=== PATIENT | female | born 1930 | race Caucasian/White ===

== ENCOUNTER 2018-11-10 09:31 | Inpatient (IN) ==
--- NOTE | 2018-11-10 09:57 | Emergency Department Note ---
ED Disposition Clinical Impression: Congestive heart failure, Acute exacerbation of chronic obstructive airways disease Disposition: Admitted As Inpatient Condition on Discharge: Good - Critical Care Critical Care Time: No Attestation: On , the high probability of a clinically significant, sudden or life threatening deterioration of the following system(s) required my full and direct attention, intervention and personal management. The time I documented below is in addition to time spent performing reported procedures but includes the following listed in this critical care notation. Medical Decision Making - Medical Records Medical records reviewed: Yes: I reviewed the patient's medical records. - Ian Inquiry Pt receiving controlled substance: No Ian was queried for this patient: No Vital Signs: 11/10/18 09:37 11/10/18 09:44 11/10/18 09:50 Temperature 97.7 F Temperature Source Oral Pulse Rate 62 Pulse Rate [Left Radial] 65 Respiratory Rate 20 Blood Pressure [Right Arm] 162/80 H Blood Pressure Mean [Right Arm] 107 Blood Pressure Source [Right Arm] Automatic Cuff Blood Pressure Position [Right Arm] Sitting 02 Sat by Pulse Oximetry 80 L 98 Oxygen Delivery Method Nasal Cannula Nasal Cannula Oxygen Flow Rate (LPM) 2 4 11/10/18 10:05 11/10/18 10:34 11/10/18 11:05 Temperature Temperature Source Pulse Rate 62 60 Pulse Rate [Left Radial] 60 Respiratory Rate 16 Blood Pressure [Right Arm] 172/78 H Blood Pressure Mean [Right Arm] 109 Blood Pressure Source [Right Arm] Automatic Cuff Blood Pressure Position [Right Arm] Sitting 02 Sat by Pulse Oximetry 98 Oxygen Delivery Method Nasal Cannula Oxygen Flow Rate (LPM) 4 - Lab Data Lab results reviewed: Yes: I reviewed the patient's lab results. Lab Results 11/10/18 10:03: WBC 4.2 L, RBC 3.54 L, Hgb 9.8 L, Hct 32.7 L, MCV 92.5, MCH 27.8, MCHC 30.1 L, RDW 15.3, Plt Count 221, MPV 7.7, Neut % (Auto) 87.1 H, Lymph % (Auto) 9.5 L, [place] % (Auto) 2.7, Eos % (Auto) 0.5, Baso % (Auto) 0.1, Neut # (Auto) 3.7, Lymph # (Auto) 0.4 L, [place] # (Auto) 0.1, Eos # (Auto) 0.0, Baso # (Auto) 0.0, Total Counted 100, Neutrophils % (Manual) 91 H, Lymphocytes % (Manual) 8 L, Monocytes % (Manual) 1 L, Platelet Estimate Normal, Hypochromasia 2+ 11/10/18 10:03: Sodium 136, Potassium 5.2 H, Chloride 96 L, Carbon Dioxide 35 H, Anion Gap 10.2, BUN 44 H, Creatinine 1.78 H, Estimated Creat Clear 21, Estimated GFR 27 L, Est GFR ( Amer) 32 L, Glucose 312 H, Calcium 9.0, Total Bilirubin 0.8, AST 22, ALT 18, Alkaline Phosphatase 124 H, Troponin I < 0.02, Total Protein 7.1, Albumin 3.4, Globulin 3.7 H, Albumin/Globulin Ratio 0.9 L 11/10/18 10:03: Lactate 2.5 H 11/10/18 11:05: Urine Color Yellow, Urine Appearance Clear, Urine pH 5.5, Ur Specific [place] 1.015, Urine Protein Negative, Urine Glucose (UA) Negative, Urine Ketones Negative, Urine Blood 1+, Urine Nitrate Negative, Urine Bilirubin Negative, Urine Urobilinogen 0.2, Ur Leukocyte Esterase Trace, Urine RBC 3-5, Urine WBC 3-5, Ur Squamous Epith Cells Occasional, Urine Bacteria 3+, Hyaline Casts Occasional Result diagrams: 11/10/18 10:03 11/10/18 10:03 Orders (Tests/Meds): ED MEDICATIONS Generic Name Dose Route Start Last Admin Trade Name Freq PRN Reason Stop Dose Admin Budesonide 0.5 mg 11/10/18 18:00 11/10/18 10:05 Pulmicort 0.5mg/2ml Neb IH 12/10/18 17:59 0.5 mg BIDRT NINA Administration Sodium Chloride 1,000 mls @ 25 mls/hr 11/10/18 10:00 Sod Chlor 0.9% 1000ml Bag IV 12/10/18 09:59 .Q25H NINA Levofloxacin/Dextrose 750 mg in 150 mls @ 100 mls/hr 11/10/18 10:00 11/10/18 10:10 Levofloxacin 750mg/150ml Premix IV 11/24/18 09:59 100 mls/hr Q24H NINA Administration Protocol Sodium Chloride 3 ml 11/10/18 09:47 Sodium Chloride 3% 15ml [facility] 12/10/18 09:46 ONCE PRN INDUCE SPUTUM COLLECTION Discontinued Medications Generic Name Dose Route Start Last Admin Trade Name Reuben PRN Reason Stop Dose Admin Albuterol/Ipratropium 6 ml 11/10/18 09:47 11/10/18 09:50 Duoneb 3ml [facility] 11/10/18 09:48 6 ml ONCE ONE Administration ORDERS Category Date Time Status Urinalysis-Acute [Urinalysis and Microscopic] Stat Lab 11/10/18 11:05 Ordered Blood Culture Stat Micro 11/10/18 09:56 Ordered Sputum Culture & Gram Stain Stat Micro 11/10/18 09:56 Ordered Urine Culture Stat Micro 11/10/18 11:05 Received - ECG Data Tracing #1 I reviewed this ECG and interpreted as documented below: Pacemaker rhythm at rate of 6 1 over 81 no acute pathology no previous CT ECG initial impression date: 11/10/18 ECG initial impression time: 10:40 Medical Decision Narrative: Differential diagnosis includes CHF, pneumonia, exacerbation of COPD, Patient improved with DuoNeb and steroids IV Levaquin started CAT scan revealed bilateral vision possible pneumonia laboratory studies essentially unremarkable results discussed with family and patient. Dr. Rahman's nurse practitioner consult patient will be admitted to hospital observation status General Adult HPI - General Chief complaint: Shortness of Breath/Dyspnea Stated complaint: sob Time Seen by Provider: 11/10/18 09:40 Mode of Arrival: EMS Limitations: No Limitations Description of Symptoms (Recalled from ER Triage Doc. by RN): to ed per squad [place] reports pt with sob. had cxr yesterday show obdulia inflitrates pt given "steroids" last night. pt admits alert follows commands. pt wears o2 24/7. pt denies any other c/o cpta duoneb. - History of Present Illness HPI narrative: Patient arrived from detention with a history of bilateral lower lobe infiltrates last couple days today more short of breath she was given IV steroids and Lasix at the detention and received DuoNeb via ambulance. Patient has a history of anemia is usually ambulatory. Patient has a history of A. fib coronary artery disease and a pacemaker is on Eliquis and aspirin. No evidence that antibiotics have been started - Related Data Home Medications Medication Instructions Recorded Confirmed Apixaban [Eliquis] 2.5 mg PO BID 11/10/18 11/10/18 Buspirone HCl 7.5 mg PO BID 11/10/18 11/10/18 Cetirizine HCl 10 mg PO DAILY 11/10/18 11/10/18 Escitalopram Oxalate [Lexapro] 5 mg PO DAILY 11/10/18 11/10/18 Ipratropium/Albuterol Sulfate 3 ml INHALATION BID 11/10/18 11/10/18 [Iprat-Albut 0.5-3(2.5) mg/3 ml] Lactulose [Lactulose 10gm/15ml 30 gm PO DAILY 11/10/18 11/10/18 Oral Soln] Lisinopril [Lisinopril 10mg Tab] 10 mg PO DAILY 11/10/18 11/10/18 Metoprolol Tartrate [Lopressor 37.5 mg PO BID 11/10/18 11/10/18 25mg tablet] Mirtazapine [Remeron 15mg tablet] 15 mg PO DAILY 11/10/18 11/10/18 Mirtazapine [Remeron] 30 mg PO DAILY 11/10/18 11/10/18 Potassium Chloride [Klor-Con 10mEq 20 meq PO BID 11/10/18 11/10/18 tab] raNITIdine HCl [Ranitidine HCl] 150 mg PO DAILY 11/10/18 11/10/18 Allergies Allergy/AdvReac Type Severity Reaction Status Date / Time iodine Allergy Verified 07/22/18 11:26 Penicillins Allergy Verified 07/22/18 11:26 Sulfa (Sulfonamide Allergy Verified 07/22/18 11:26 Antibiotics) [facility] History - Hepatitis A Screen Drug use history?: No High risk sexual behaviors?: No History of sexually transmitted infection?: No Currently employed?: No Childcare worker?: No Do you have indoor plumbing?: Yes Do you have electricity?: Yes Attestation statement:: This patient has been screened for Hepatitis A risk factors. I have reviewed the patient's past medical history: Yes Medical History: Reports:: Atherosclerotic Heart Disease, Atrial Fibrillation, Congestive Heart Failure, Chronic Obstructive Pulmonary Disease (COPD), Internal Pacemaker Other Medical History: Reports: Anemia - Social History Alcohol Intake: never Occupational Status: other - Psychiatric History Expresses thoughts of harming self/others: None Suicide Plan Description: No Plan ROS Obtained: Yes All systems reviewed & no additional complaints - Constitutional Constitutional: Reports as per HPI, Reports weakness - Respiratory Respiratory: Yes as per HPI, Yes dyspnea, Yes wheezing Physical Exam - General General appearance: alert, in no apparent distress Comment: Mildly dyspneic mild audible wheezes very pale alert and oriented - Head Head exam: atraumatic, normocephalic, normal inspection - Eye Eye exam: Present: normal appearance, PERRL, EOMI - ENT ENT exam: Present: normal exam, normal oropharynx, mucous membranes moist, TM's normal bilaterally, normal external ear exam - Neck Neck exam: Present: normal inspection, full ROM, trachea midline. Absent: meningismus, lymphadenopathy - Chest Chest inspection: Present: normal inspection, symmetric chest wall rise. Absent: tenderness - Respiratory Respiratory exam: Present: respiratory distress (Mildly tachypneic some audible wheezes but able to answer questions with short sentences bilateral lower base dullness with egophony left-sided rales crackles), wheezes. Absent: normal lung sounds bilaterally - Cardiovascular Cardiovascular exam: Present: irregular rhythm, Pacemaker not pacing now. Absent: JVD - Abdominal Exam Abdominal exam: Present: soft, normal bowel sounds. Absent: distention, tenderness, guarding - Extremities Exam Extremities exam: Present: normal inspection, full ROM, normal capillary refill. Absent: calf tenderness - Back Exam Back exam: Present: normal inspection. Absent: tenderness - Neurological Exam Neurological exam: Present: alert, oriented X3 - Psychiatric Psychiatric exam: Present: normal affect, normal mood - Skin Skin exam: Present: warm, dry, intact, normal color - Lymphatic Lymphatic Findings: no adenopathy
[2018-11-10 10:16] LABS: Basophils % 0.1 % (0.1-2.0); Eosinophils % 0.5 % (0.1-12.0); Hematocrit 32.7 % (37.0-47.0); Hemoglobin 9.8 g/dL (12.2-16.2); Lymphocytes # 0.4 K/mm3 (0.7-4.5); Lymphocytes % 9.5 % (10-50); Mean Corpuscular HGB Conc 30.1 g/dL (31.8-35.4); Mean Corpuscular Hemoglobin 27.8 pg (27.0-31.2); Mean Corpuscular Volume 92.5 fl (81-99); Mean Platelet Volume 7.7 fl (7.4-10.4); Monocytes # 0.1 K/mm3 (0.1-1.0); Monocytes % 2.7 % (1.7-9.3); Neutrophils # 3.7 K/mm3 (1.8-7.8); Neutrophils % 87.1 % (37.0-80.0); Platelet Count 221 K/mm3 (142-424); Red Blood Count 3.54 M/mm3 (4.20-5.40); Red Cell Distribution Width 15.3 % (11.5-17.5); White Blood Count 4.2 K/mm3 (4.8-10.8)
[2018-11-10 10:40] LABS: Alanine Aminotransferase 18 U/L (12-78); Albumin Level 3.4 gm/dL (3.4-5.0); Albumin/Globulin Ratio 0.9 (1.1-1.8); Alkaline Phosphatase 124 U/L (46-116); Anion Gap 10.2 mEq/L (5-15); Aspartate Amino Transferase 22 U/L (15-37); Bilirubin,Total 0.8 mg/dL (0.2-1.0); Blood Urea Nitrogen 44 mg/dL (7-18); Carbon Dioxide 35 mmol/L (21.0-32.0); Chloride 96 mmol/L (98-107); Globulin 3.7 gm/dl (1.3-3.2); Glucose 312 mg/dL (74-106); Potassium 5.2 mmoL/L (3.5-5.1); Sodium 136 mmol/L (136-145); Total Protein,Serum 7.1 gm/dL (6.4-8.2)
[2018-11-10 10:58] LABS: Hypochromasia 2+; Lymphocytes % 8 % (10-50); Monocytes % 1 % (2-9); Neutrophils % 91 % (42-76); Total Cells Counted 100
[2018-11-10 11:14] LABS: Microscopic, Urine URINE MICROSCOPIC (MICROSCOPIC)
[2018-11-10 11:15] LABS: Appearance,Urine CLEAR (Clear); Bilirubin,Urine Negative (Negative); Blood, Urine 1+ (Negative); Color,Urine YELLOW (Yellow); Glucose,Urine (UA) Negative (Negative); Ketones,Urine Negative (Negative); Leukocyte Esterase,Urine TRACE (Negative); PH,Urine 5.5 (5.0-8.5); Protein,Urine Negative (Negative); Specific Gravity, Urine 1.015 (1.005-1.030); Urobilinogen,Urine 0.2 EU/dl (0.2)
[2018-11-10 11:28] LABS: Bacteria,Urine 3+ /lpf; Hyaline Casts,Urine Occasional #/lpf (0); Squamous Epithelial Cell,Urine Occasional #/hpf (0-5)
[2018-11-10 14:46] LABS: Anion Gap 10.2 mEq/L (5-15); Calcium 8.9 mg/dL (8.5-10.1); Potassium 5.2 mmoL/L (3.5-5.1)
--- NOTE | 2018-11-10 15:08 | Pharmacy Consult Notes ---
[facility] Pharmacy VTE Monitoring - Patient Demographics Admission date: 11/10/18 Report Date: 11/10/18 Time: 15:08 Allergies/Adverse Reactions: Patient Allergies iodine Allergy (Verified 07/22/18 11:26) Penicillins Allergy (Verified 07/22/18 11:26) Sulfa (Sulfonamide Antibiotics) Allergy (Verified 07/22/18 11:26) Height: 1.6 m Weight: 59.676 kg Patient Problems: Current Active Problems Congestive heart failure (Acute) Acute exacerbation of chronic obstructive airways disease (Acute) - VTE Risk Labs: VTE Related Lab Results Hgb 9.8 g/dL (12.2-16.2) L 11/10/18 10:03 Hct 32.7 % (37.0-47.0) L 11/10/18 10:03 Plt Count 221 K/mm3 (142-424) 11/10/18 10:03 BUN 46 mg/dL (7-18) H 11/10/18 13:54 Creatinine 1.77 mg/dL (0.55-1.02) H 11/10/18 13:54 Estimated Creat Clear 20 mL/min (50-200) 11/10/18 13:54 VTE Score: 4 VTE Risk Level: Low Risk Clinical Trial Participant: No - Prophylaxis VTE Prophylaxis Ordered?: Yes Types of VTE Prophylaxis: TEDS Knee High Location of Applied Device: Bilateral Lower Extremeties
--- NOTE | 2018-11-10 16:10 | History & Physical Report ---
*Admission Date: 11/10/18 *Chief complaint: shortness of breath *History of present illness: 88 year old female with a h/o diabetes, A.fib, CAD, PPM and CHF who resides at [facility] was transported to [facility] ED for evaluation of lethargic and shortness of breath. Patient reports a 2 weeks h/o increased LE edema and shortness of breath. She has required oxygen over the last 2 weeks to maintain her saturations which is a new for her. She has had increased oral Lasix with little improvement of symptoms. [facility] staff report she was "virtually unresponsive" this morning with saturations "in the low 80's." In the ED, labs revealed mild anemia with H/H 9.8/32.7 which is about her baseline. Creatinine 1.78 which is up from her baseline of 1.2. Potassium mildly elevated at 5.2 which is an improvement from facility labs 2 weeks ago when potassium supplement was discontinued. CXR showed bilateral basilar infiltrates which prompted a CT scan of the chest. CT showed moderate bilateral pleural effusions/infiltrates, nodular opacities which could be inflammatory/infectious although neoplasm is not excluded and faint ground glass appearance in upper lobes possibly from pulmonary edema. UA suspicious for UTI, culture pending. Patient was admitted for IV antibiotics and further evaluation. [facility] History I have reviewed the patient's past medical history: Yes Medical History: Reports:: Atherosclerotic Heart Disease, Atrial Fibrillation, Congestive Heart Failure, Chronic Obstructive Pulmonary Disease (COPD), Diabetes Mellitus Type 2, Internal Pacemaker Denies:: Cancer, Diabetes Mellitus Type 1, MRSA Have you ever received a pneumonia vaccine?: Yes Have you received a flu vaccine this season?: Yes Other Medical History: Reports: Anemia Other Surgeries: Yes: Cholecystectomy, Pacemaker Amputation: No Fractures: No - *Social History Educational Level: Completed College Smoking Status: Never smoker Alcohol Intake: never Occupational Status: retired, other Housing: long-term Travel in the last 8 weeks: None - Psychiatric History Expresses thoughts of harming self/others: None Suicide Plan Description: No Plan *Family Hx:: Cancer, Diabetes, Heart Attack, Hyperlipidemia, Hypertension, Stroke Review of Systems - Review of Systems Review of systems:: pertinent systems reviewed and negative unless documented below - Constitutional Reports weakness - *Cardiovascular Reports generalized swelling - *Respiratory Reports cough - *Neurologic Reports weakness Meds Home Medications Medication Instructions Recorded Confirmed Type Apixaban [Eliquis] 2.5 mg PO BID 11/10/18 11/10/18 History Aspirin [Aspirin 81mg EC Tab] 81 mg PO DAILY 11/10/18 11/10/18 History Atorvastatin Calcium [Atorvastatin 20 mg PO HS 11/10/18 11/10/18 History 20mg Tab] Azelastine/Fluticasone [Dymista 1 spr IN BID 11/10/18 11/10/18 History Nasal [place]] Buspirone HCl 7.5 mg PO BID 11/10/18 11/10/18 History Cetirizine HCl 10 mg PO DAILY 11/10/18 11/10/18 History Escitalopram Oxalate [Lexapro] 5 mg PO DAILY 11/10/18 11/10/18 History Furosemide [Furosemide 20mg Tab] 20 mg PO DAILY 11/10/18 11/10/18 History Ipratropium/Albuterol Sulfate 3 ml INHALATION BID 11/10/18 11/10/18 History [Iprat-Albut 0.5-3(2.5) mg/3 ml] Lactulose [Lactulose 10gm/15ml 30 gm PO DAILY 11/10/18 11/10/18 History Oral Soln] Lisinopril [Lisinopril 10mg Tab] 10 mg PO DAILY 11/10/18 11/10/18 History Metoprolol Tartrate [Lopressor 37.5 mg PO BID 11/10/18 11/10/18 History 25mg tablet] Mirtazapine [Remeron 15mg tablet] 15 mg PO DAILY 11/10/18 11/10/18 History raNITIdine HCl [Ranitidine HCl] 150 mg PO DAILY 11/10/18 11/10/18 History Allergies Allergy/AdvReac Type Severity Reaction Status Date / Time iodine Allergy Verified 07/22/18 11:26 Penicillins Allergy Verified 07/22/18 11:26 Sulfa (Sulfonamide Allergy Verified 07/22/18 11:26 Antibiotics) Exam Vital signs and Labs for Last 24 Hours: Temp Pulse Resp BP Pulse Ox 98.2 F 60 18 142/55 H 98 11/10/18 15:39 11/10/18 15:39 11/10/18 15:39 11/10/18 15:39 11/10/18 15:39 Laboratory Results - last 24 hr 11/10/18 10:03: WBC 4.2 L, RBC 3.54 L, Hgb 9.8 L, Hct 32.7 L, MCV 92.5, MCH 27.8, MCHC 30.1 L, RDW 15.3, Plt Count 221, MPV 7.7, Neut % (Auto) 87.1 H, Lymph % (Auto) 9.5 L, [place] % (Auto) 2.7, Eos % (Auto) 0.5, Baso % (Auto) 0.1, Neut # (Auto) 3.7, Lymph # (Auto) 0.4 L, [place] # (Auto) 0.1, Eos # (Auto) 0.0, Baso # (Auto) 0.0, Total Counted 100, Neutrophils % (Manual) 91 H, Lymphocytes % ( Manual) 8 L, Monocytes % (Manual) 1 L, Platelet Estimate Normal, Hypochromasia 2+ 11/10/18 10:03: Sodium 136, Potassium 5.2 H, Chloride 96 L, Carbon Dioxide 35 H, Anion Gap 10.2, BUN 44 H, Creatinine 1.78 H, Estimated Creat Clear 21, Estimated GFR 27 L, Est GFR ( Amer) 32 L, Glucose 312 H, Calcium 9.0, Total Bilirubin 0.8, AST 22, ALT 18, Alkaline Phosphatase 124 H, Troponin I < 0.02, Total Protein 7.1, Albumin 3.4, Globulin 3.7 H, Albumin/Globulin Ratio 0.9 L 11/10/18 10:03: Lactate 2.5 H 11/10/18 11:05: Urine Color Yellow, Urine Appearance Clear, Urine pH 5.5, Ur Specific [place] 1.015, Urine Protein Negative, Urine Glucose (UA) Negative, Urine Ketones Negative, Urine Blood 1+, Urine Nitrate Negative, Urine Bilirubin Negative, Urine Urobilinogen 0.2, Ur Leukocyte Esterase Trace, Urine RBC 3-5, Urine WBC 3-5, Ur Squamous Epith Cells Occasional, Urine Bacteria 3+, Hyaline Casts Occasional 11/10/18 13:54: Sodium 137, Potassium 5.2 H, Chloride 98, Carbon Dioxide 34 H, Anion Gap 10.2, BUN 46 H, Creatinine 1.77 H, Estimated Creat Clear 20, Estimated GFR 27 L, Est GFR ( Amer) 33 L, Glucose 236 H D, Calcium 8.9 11/10/18 14:23: Lactate 2.2 H I & O for Last 24 hours: Intake & Output 11/08/18 11/09/18 11/10/18 11/11/18 11:59 11:59 11:59 11:59 Intake Total 120 / 120 Output Total 200 / 200 Balance -80 / -80 Weight 140 lb 131 lb 9 oz Narrative: Alert and oriented x 3, some confusion. Rate and rhythm regular. PPM noted left chest. 2+ BLE edema extends up to mid thighs. Lung sounds with fine crackles bilaterally. Abdomen, mild distended, soft, nontender. Skin, is warm, pale. ENT exam unremarkable. Assessment and Plan (1) Bilateral pneumonia Current visit: Yes Status: Acute Category: Medical Code(s): J18.9 - Pneumonia, unspecified organism (2) UTI (urinary tract infection) Current visit: Yes Status: Acute Category: Medical Code(s): N39.0 - Urinary tract infection, site not specified (3) Renal insufficiency Current visit: Yes Status: Acute Category: Medical Code(s): N28.9 - Disorder of kidney and ureter, unspecified (4) Hyperkalemia Current visit: Yes Status: Acute Category: Medical Code(s): E87.5 - Hyperkalemia (5) Type 2 diabetes mellitus Current visit: Yes Status: Chronic Qualifiers: Diabetes mellitus salvage determiner insulin use: without salvage determiner use Diabetes mellitus complication status: without complication Qualified Code(s): E11.9 - Type 2 diabetes mellitus without complications Category: Medical Code(s): E11.9 - Type 2 diabetes mellitus without complications (6) Congestive heart failure Current visit: Yes Status: Acute Category: Medical Code(s): I50.9 - Heart failure, unspecified - Assessment and plan all Dx Assessment and Plan for all problems:: Admit on Levaquin for pneumonia and UTI coverage. Urine and blood cultures are pending. Obtain sputum if patient is able to produce. I believe her dyspnea is related to her CHF with fluid overload. Will give albumin and IVF's followed by Lasix for starling effect in attempt to diuresis. Obtain Echo. Will request records from [place] cardiology Dr. Villalpando for review. Recheck labs in the am. FSBS with sliding scale coverage. Spoke with patient and family who confirmed DNR status.
[2018-11-11 06:14] LABS: Basophils % 0.1 % (0.1-2.0); Eosinophils % 0.5 % (0.1-12.0); Lymphocytes # 0.8 K/mm3 (0.7-4.5); Lymphocytes % 10.8 % (10-50); Monocytes # 0.8 K/mm3 (0.1-1.0); Neutrophils # 5.5 K/mm3 (1.8-7.8); Neutrophils % 77.5 % (37.0-80.0)
[2018-11-11 06:20] LABS: Hematocrit 27.5 % (37.0-47.0); Mean Corpuscular HGB Conc 30.9 g/dL (31.8-35.4); Mean Corpuscular Hemoglobin 28.2 pg (27.0-31.2); Mean Corpuscular Volume 91.5 fl (81-99); Mean Platelet Volume 7.7 fl (7.4-10.4); Platelet Count 193 K/mm3 (142-424); Red Cell Distribution Width 15.4 % (11.5-17.5); White Blood Count 6.9 K/mm3 (4.8-10.8)
[2018-11-11 06:22] LABS: Hemoglobin 8.5 g/dL (12.2-16.2)
[2018-11-11 06:30] LABS: Calcium 8.4 mg/dL (8.5-10.1)
--- NOTE | 2018-11-11 07:41 | Progress Note ---
Internal Medicine - PN: Subj *Date: 11/11/18 *Time: 07:39 Interval history: Patient feels a little better than yesterday. There is a 9 pound weight loss documented but this does not appear to be accurate as the ER weight apparently was not an actual documented scale based weight. She has diuresed several times but again I am not sure of the accuracy of the numbers in the chart she possibly has diuresed about a liter. Her daughter reports that she becomes short of air when she gets up and moves around and this causes "some panicky symptoms." Exam Vital signs and Labs for Last 24 Hours: Temp Pulse Resp BP Pulse Ox 98.0 F 60 20 144/49 H 100 11/11/18 04:00 11/11/18 06:40 11/11/18 04:00 11/11/18 04:00 11/11/18 06:40 Laboratory Results - last 24 hr 11/10/18 10:03: WBC 4.2 L, RBC 3.54 L, Hgb 9.8 L, Hct 32.7 L, MCV 92.5, MCH 27.8, MCHC 30.1 L, RDW 15.3, Plt Count 221, MPV 7.7, Neut % (Auto) 87.1 H, Lymph % (Auto) 9.5 L, [place] % (Auto) 2.7, Eos % (Auto) 0.5, Baso % (Auto) 0.1, Neut # (Auto) 3.7, Lymph # (Auto) 0.4 L, [place] # (Auto) 0.1, Eos # (Auto) 0.0, Baso # (Auto) 0.0, Total Counted 100, Neutrophils % (Manual) 91 H, Lymphocytes % (Manual) 8 L, Monocytes % (Manual) 1 L, Platelet Estimate Normal, Hypochromasia 2+ 11/10/18 10:03: Sodium 136, Potassium 5.2 H, Chloride 96 L, Carbon Dioxide 35 H, Anion Gap 10.2, BUN 44 H, Creatinine 1.78 H, Estimated Creat Clear 21, Estimated GFR 27 L, Est GFR ( Amer) 32 L, Glucose 312 H, Calcium 9.0, Total Bilirubin 0.8, AST 22, ALT 18, Alkaline Phosphatase 124 H, Troponin I < 0.02, Total Protein 7.1, Albumin 3.4, Globulin 3.7 H, Albumin/Globulin Ratio 0.9 L 11/10/18 10:03: Lactate 2.5 H 11/10/18 11:05: Urine Color Yellow, Urine Appearance Clear, Urine pH 5.5, Ur Specific [place] 1.015, Urine Protein Negative, Urine Glucose (UA) Negative, Urine Ketones Negative, Urine Blood 1+, Urine Nitrate Negative, Urine Bilirubin Negative, Urine Urobilinogen 0.2, Ur Leukocyte Esterase Trace, Urine RBC 3-5, Urine WBC 3-5, Ur Squamous Epith Cells Occasional, Urine Bacteria 3+, Hyaline Casts Occasional 11/10/18 13:54: Sodium 137, Potassium 5.2 H, Chloride 98, Carbon Dioxide 34 H, Anion Gap 10.2, BUN 46 H, Creatinine 1.77 H, Estimated Creat Clear 20, Estimated GFR 27 L, Est GFR ( Amer) 33 L, Glucose 236 H D, Calcium 8.9 11/10/18 14:23: Lactate 2.2 H 11/10/18 16:24: POC Glucose 185 H 11/10/18 16:51: Lactate 2.1 H 11/10/18 21:17: POC Glucose 147 H 11/11/18 05:52: POC Glucose 175 H 11/11/18 05:55: WBC 6.9 D, RBC 3.00 L, Hgb 8.5 L D, Hct 27.5 L, MCV 91.5, MCH 28.2, MCHC 30.9 L, RDW 15.4, Plt Count 193, MPV 7.7, Neut % (Auto) 77.5, Lymph % (Auto) 10.8, [place] % (Auto) 11.0 H, Eos % (Auto) 0.5, Baso % (Auto) 0.1, Neut # (Auto) 5.5, Lymph # (Auto) 0.8, [place] # (Auto) 0.8, Eos # (Auto) 0.0, Baso # (Auto) 0.0 11/11/18 05:55: Sodium 135 L, Potassium 5.0, Chloride 98, Carbon Dioxide 33 H, Anion Gap 9.0, BUN 48 H, Creatinine 1.63 H, Estimated Creat Clear 22, Estimated GFR 30 L, Est GFR ( Amer) 36 L, Glucose 174 H D, Calcium 8.4 L I & O for Last 24 hours: Intake & Output 11/08/18 11/09/18 11/10/18 11/11/18 11:59 11:59 11:59 11:59 Intake Total 1827 / 1827 Output Total 1000 / 1000 Balance 827 / 827 Weight 140 lb 131 lb 9 oz Narrative: Patient is in her chair, appears comfortable currently, and is in no respiratory distress wearing oxygen. Her extremities are much improved vis--vis edema with almost no edema in the a nkles. Anterior lung sanders are also improved but she continues to have bibasilar crackles and some scattered rhonchi. Heart rate regular with 3/6 holosystolic murmur. Abdomen is soft. She is pleasant, talkative, hard of hearing status limits her conversational ability however. Globally weak but is able to move all extremities well. Clear. No other neck exams. No visible JVD today. Assessment and Plan (1) Bilateral pneumonia Current visit: Yes Status: Acute Category: Medical Code(s): J18.9 - Pneumonia, unspecified organism (2) UTI (urinary tract infection) Current visit: Yes Status: Acute Category: Medical Code(s): N39.0 - Urinary tract infection, site not specified (3) Renal insufficiency Current visit: Yes Status: Acute Category: Medical Code(s): N28.9 - Disorder of kidney and ureter, unspecified (4) Hyperkalemia Current visit: Yes Status: Acute Category: Medical Code(s): E87.5 - Hyperkalemia (5) Type 2 diabetes mellitus Current visit: Yes Status: Chronic Qualifiers: Diabetes mellitus station jailer insulin use: without care home use Diabetes mellitus complication status: without complication Qualified Code(s): E11.9 - Type 2 diabetes mellitus without complications Category: Medical Code(s): E11.9 - Type 2 diabetes mellitus without complications (6) Congestive heart failure Current visit: Yes Status: Acute Category: Medical Code(s): I50.9 - Heart failure, unspecified (7) Bilateral pleural effusion Current visit: Yes Status: Acute Category: Medical Code(s): J90 - Pleural effusion, not elsewhere classified (8) Anemia, chronic disease Current visit: Yes Status: Acute Category: Medical Code(s): D63.8 - Anemia in other chronic diseases classified elsewhere - Assessment and plan all Dx Assessment and Plan for all problems:: Patient slightly improved overnight. We will administer Lasix again today given her improved renal function and continue low-dose IV fluids. Echocardiogram today. Medication adjustment based on this. Roxanol for air hunger issues given her CHF.
--- NOTE | 2018-11-11 16:49 | Cardiology Report ---
PROCEDURE: 2-D M-mode and color Doppler study INDICATIONS FOR THE TEST: Chest pain COPD+ Heart Murmur Tobacco Smoking Palpitations Fatigue Syncope Edema+ Hypertension+Diabetes Mellitus Rheumatic Fever SOB+BARGER Obesity Hyperlipidemia Family History HD Additional History pacemaker, CABG, bilateral pleural effusion, Home O2, AFIB, CAD PATIENT INFORMATION HEIGHT: 63 WEIGHT: 131 GENDER: Female B/P: 162/80 2-D/M-MODE INTERPRETATION: 2-D MEASUREMENTS OBSERVED VALUES IN CMS Right Ventricular Dimension (RVDd) 2.2 Interventricular Septum (Thickness)(IVsd) 0.8 Left Ventricular Internal Dimensions(LVIDd) 3.9 Left Ventricular Posterior Wall (Thickness)(LVPWd) 0.8 Aortic Root 2.2 Aortic Cusp Separation 4.5 Left Atrial Dimensions (LAD) 1.4 2D 1. Left atrium is mildly enlarged, left ventricle is normal size, there is mild concentric left ventricular hypertrophy, visually estimated ejection fraction 55% with no regional wall motion abnormality. 2. The right atrium and right ventricle are mildly enlarged with normal contractility. 3. The aortic valve is thickened and calcified leaflet continue to display mobility. 4. The mitral and tricuspid valve leaflets are minimally thickened. 5. The pulmonic valve is poorly visualized. 6. There is no significant pericardial effusion, there is left-sided pleural effusion seen. DOPPLER INTERROGATION: Doppler interrogation of the aortic, mitral and tricuspid valvular presence of mild to moderate mitral and mild tricuspid regurgitation, tricuspid regurgitation jet velocity is inadequate for calculation of the right ventricular systolic pressure, diastolic parameters are inconclusive. CONCLUSION: 1. Mildly enlarged left atrium, normal left ventricular size, mild concentric left ventricular hypertrophy, visually estimated ejection fraction 55% with no regional wall motion abnormality, diastolic parameters are inconclusive. 2. Mild to moderate mitral and mild tricuspid regurgitation 3. No significant pericardial effusion noted, there is left-sided pleural effusion seen.
[2018-11-11 18:13] LABS: Basophils % 0.2 % (0.1-2.0); Eosinophils % 0.3 % (0.1-12.0); Hematocrit 30.2 % (37.0-47.0); Hemoglobin 8.8 g/dL (12.2-16.2); Lymphocytes # 0.4 K/mm3 (0.7-4.5); Lymphocytes % 5.8 % (10-50); Mean Corpuscular HGB Conc 29.1 g/dL (31.8-35.4); Mean Corpuscular Hemoglobin 27.5 pg (27.0-31.2); Mean Corpuscular Volume 94.3 fl (81-99); Mean Platelet Volume 8.5 fl (7.4-10.4); Monocytes # 0.8 K/mm3 (0.1-1.0); Monocytes % 9.9 % (1.7-9.3); Neutrophils # 6.4 K/mm3 (1.8-7.8); Neutrophils % 83.8 % (37.0-80.0); Platelet Count 225 K/mm3 (142-424); White Blood Count 7.7 K/mm3 (4.8-10.8)
[2018-11-11 18:20] LABS: Anion Gap 7.2 mEq/L (5-15); Calcium 8.3 mg/dL (8.5-10.1); Potassium 5.2 mmoL/L (3.5-5.1)
[2018-11-12 07:02] LABS: Basophils % 0.3 % (0.1-2.0); Eosinophils % 0.1 % (0.1-12.0); Hematocrit 30.4 % (37.0-47.0); Hemoglobin 8.9 g/dL (12.2-16.2); Lymphocytes # 0.7 K/mm3 (0.7-4.5); Lymphocytes % 9.5 % (10-50); Mean Corpuscular HGB Conc 29.2 g/dL (31.8-35.4); Mean Corpuscular Volume 96.1 fl (81-99); Mean Platelet Volume 8.5 fl (7.4-10.4); Monocytes # 0.9 K/mm3 (0.1-1.0); Monocytes % 11.9 % (1.7-9.3); Neutrophils # 5.7 K/mm3 (1.8-7.8); Neutrophils % 78.2 % (37.0-80.0); Platelet Count 228 K/mm3 (142-424); Red Blood Count 3.17 M/mm3 (4.20-5.40); White Blood Count 7.3 K/mm3 (4.8-10.8)
[2018-11-12 07:48] LABS: Anion Gap 12.5 mEq/L (5-15); Calcium 8.3 mg/dL (8.5-10.1); Potassium 5.5 mmoL/L (3.5-5.1)
--- NOTE | 2018-11-12 08:38 | Progress Note ---
Internal Medicine - PN: Subj *Date: 11/12/18 *Time: 08:36 Interval history: Patient had a significant episode of somnolence and unarousability yesterday seeming to be temporally associated with Roxanol dosage that was given for air hunger. Narcan reversed the situation somewhat but she continues to be somnolent through the day and night last night. She remains somnolent this morning. Exam Vital signs and Labs for Last 24 Hours: Temp Pulse Resp BP Pulse Ox 97.5 F L 81 15 92/35 L 89 L 11/12/18 04:00 11/12/18 06:38 11/12/18 04:00 11/12/18 04:00 11/12/18 06:38 Laboratory Results - last 24 hr 11/11/18 16:11: POC Glucose 209 H 11/11/18 17:44: WBC 7.7, RBC 3.20 L, Hgb 8.8 L, Hct 30.2 L, MCV 94.3, MCH 27.5, MCHC 29.1 L, RDW 15.0, Plt Count 225, MPV 8.5, Neut % (Auto) 83.8 H, Lymph % (Auto) 5.8 L, [place] % (Auto) 9.9 H, Eos % (Auto) 0.3, Baso % (Auto) 0.2, Neut # (Auto) 6.4, Lymph # (Auto) 0.4 L, [place] # (Auto) 0.8, Eos # (Auto) 0.0, Baso # (Auto) 0.0 11/11/18 17:44: Sodium 136, Potassium 5.2 H, Chloride 99, Carbon Dioxide 35 H, Anion Gap 7.2, BUN 51 H, Creatinine 1.84 H, Estimated Creat Clear 20, Estimated GFR 26 L, Est GFR ( Amer) 31 L, Glucose 195 H, Calcium 8.3 L 11/11/18 21:12: POC Glucose 175 H 11/12/18 05:59: POC Glucose 149 H 11/12/18 06:00: WBC 7.3, RBC 3.17 L, Hgb 8.9 L, Hct 30.4 L, MCV 96.1, MCH 28.0, MCHC 29.2 L, RDW 15.0, Plt Count 228, MPV 8.5, Neut % (Auto) 78.2, Lymph % (Auto) 9.5 L, [place] % (Auto) 11.9 H, Eos % (Auto) 0.1, Baso % (Auto) 0.3, Neut # (Auto) 5.7, Lymph # (Auto) 0.7, [place] # (Auto) 0.9, Eos # (Auto) 0.0, Baso # (Auto) 0.0 11/12/18 06:00: Sodium 136, Potassium 5.5 H, Chloride 99, Carbon Dioxide 30, Anion Gap 12.5, BUN 57 H, Creatinine 2.18 H, Estimated Creat Clear 16, Estimated GFR 21 L, Est GFR ( Amer) 26 L, Glucose 144 H D, Calcium 8.3 L I & O for Last 24 hours: Intake & Output 11/09/18 11/10/18 11/11/18 11/12/18 11:59 11:59 11:59 11:59 Intake Total 2067 / 2067 671 / 671 Output Total 1300 / 1300 435 / 435 Balance 767 / 767 236 / 236 Weight 140 lb 131 lb 9 oz Microbiology Reports for the Last 24 Hours: Microbiology 11/10/18 11:05 Urine,Clean Catch Urine Culture - Preliminary Gram Negative Rods Narrative: Appears somnolent. Arouses to tactile stimuli. Poor air movement bilateral lung sanders. Vital signs reviewed. Urine output negligible. Assessment and Plan (1) Bilateral pneumonia Current visit: Yes Status: Acute Category: Medical Code(s): J18.9 - Pneumonia, unspecified organism (2) UTI (urinary tract infection) Current visit: Yes Status: Acute Category: Medical Code(s): N39.0 - Urinary tract infection, site not specified (3) Renal insufficiency Current visit: Yes Status: Acute Category: Medical Code(s): N28.9 - Disorder of kidney and ureter, unspecified (4) Hyperkalemia Current visit: Yes Status: Acute Category: Medical Code(s): E87.5 - Hyperkalemia (5) Type 2 diabetes mellitus Current visit: Yes Status: Chronic Qualifiers: Diabetes mellitus sexual abuse counsellor insulin use: without sexual abuse counsellor use Diabetes mellitus complication status: without complication Qualified Code(s): E11.9 - Type 2 diabetes mellitus without complications Category: Medical Code(s): E11.9 - Type 2 diabetes mellitus without complications (6) Congestive heart failure Current visit: Yes Status: Acute Category: Medical Code(s): I50.9 - Heart failure, unspecified (7) Bilateral pleural effusion Current visit: Yes Status: Acute Category: Medical Code(s): J90 - Pleural effusion, not elsewhere classified (8) Anemia, chronic disease Current visit: Yes Status: Acute Category: Medical Code(s): D63.8 - Anemia in other chronic diseases classified elsewhere - Assessment and plan all Dx Assessment and Plan for all problems:: Patient's problem list as noted above is reviewed. Renal function is deteriorating. Poor response to Lasix. UTI treatment continues with levofloxacin. Echocardiogram reviewed. Systolic function preserved but diastolic dysfunction evident. I had a long discussion with son and [id number] goals of care, discussed her worsening renal failure, anasarca and pulmonary edema/pleural effusions. I do not feel that there is much other than significant invasive procedures such as thoracentesis/dialysis that could help at this point. They will discussed with family enroll in hospice. We reaffirmed her DNR status.
--- NOTE | 2018-11-13 08:30 | Progress Note ---
Internal Medicine - PN: Subj *Date: 11/13/18 *Time: 08:28 Interval history: Ms. Palafox was accepted into hospice care yesterday, and in transition to palliative care mode antibiotics and IV fluids were stopped. She remains on intravenous morphine for comfort. Family is at bedside. She is a little bit more alert today and responds to verbal stimuli but does not have coherent sentences. Family reports that she appears to feel "hot" and has needed some positioning because of some back pain. Exam Vital signs and Labs for Last 24 Hours: Temp Pulse Resp BP Pulse Ox 98.4 F 60 16 89/29 L 98 11/13/18 08:00 11/13/18 08:00 11/13/18 08:00 11/13/18 08:00 11/13/18 08:00 I & O for Last 24 hours: Intake & Output 11/10/18 11/11/18 11/12/18 11/13/18 11:59 11:59 11:59 11:59 Intake Total 2067 / 2067 1102 / 1102 769 / 769 Output Total 1300 / 1300 435 / 435 0 / 0 Balance 767 / 767 667 / 667 769 / 769 Weight 140 lb 131 lb 9 oz 147 lb 0.773 oz Microbiology Reports for the Last 24 Hours: Microbiology 11/10/18 11:05 Urine,Clean Catch Urine Culture - Final Escherichia coli 11/10/18 09:56 Blood Blood Culture - Preliminary NO GROWTH AFTER 48 HOURS 11/10/18 09:56 Blood Blood Culture - Preliminary NO GROWTH AFTER 48 HOURS Narrative: Patient is somnolent when I entered the room but arousable. Does not follow commands, does not engage in meaningful response of sentences. Heart rate regular. Anterior lung sanders have rhonchi. Poor perfusion in the feet but otherwise she is warm and well-perfused in her hands. Abdomen soft and nontender. Nelson catheter in place draining dark yellow urine. Assessment and Plan (1) Bilateral pneumonia Current visit: Yes Status: Acute Category: Medical Code(s): J18.9 - Pneumonia, unspecified organism (2) UTI (urinary tract infection) Current visit: Yes Status: Acute Category: Medical Code(s): N39.0 - Urinary tract infection, site not specified (3) Renal insufficiency Current visit: Yes Status: Acute Category: Medical Code(s): N28.9 - Disorder of kidney and ureter, unspecified (4) Hyperkalemia Current visit: Yes Status: Acute Category: Medical Code(s): E87.5 - Hyperkalemia (5) Type 2 diabetes mellitus Current visit: Yes Status: Chronic Qualifiers: Diabetes mellitus fdc insulin use: without fdc use Diabetes mellitus complication status: without complication Qualified Code(s): E11.9 - Type 2 diabetes mellitus without complications Category: Medical Code(s): E11.9 - Type 2 diabetes mellitus without complic ations (6) Congestive heart failure Current visit: Yes Status: Acute Category: Medical Code(s): I50.9 - Heart failure, unspecified (7) Bilateral pleural effusion Current visit: Yes Status: Acute Category: Medical Code(s): J90 - Pleural effusion, not elsewhere classified (8) Anemia, chronic disease Current visit: Yes Status: Acute Category: Medical Code(s): D63.8 - Anemia in other chronic diseases classified elsewhere - Assessment and plan all Dx Assessment and Plan for all problems:: Agree with transition to hospice care. Patient with fairly good response to supportive care measures. Anticipate terminal outcome. Family at bedside. Other family is flying in today. Both children and extended family are in agreement with hospice plan.
--- NOTE | 2018-11-14 04:15 | Death Note ---
Pronouncement Note - Date and Time of Date of : 11/14/18 Time of : 03:09 - PCOD Preliminary cause of : Acute respiratory failure - Additional Data Confirmation of : no pulse, no respirations, pupils fixed and dilated Family: at bedside Attending/PCP notified?: Yes Attending physician: Nicho Rahman MD Was code activated?: No Autopsy requested?: No flat examiner notified?: No Organ bank notified?: Yes Advance directives: Yes
--- NOTE | 2018-11-17 20:57 | Death Note ---
Discharge Sum: Prov - Provider Primary care physician: Becka Kovacs APRN Admitting clinician: Nicho Rahman Attending physician on admission: Nicho Rahman Consults: 11/12/18 08:35 Care Management Consult [Consult to Case Management] [CONS] Routine Comment: Hospice consult - [facility] Pronouncing clinician: Carlos A De La Fuente Discharge Sum: Summary - Date and Time Date of admission: 11/10/18 13:02 Date of : 11/14/18 Time of : 03:09 - Summary Details: Evidence of multiorgan failure with renal perfusion delay and declining UOP in the face of CHF and bilateral pneumonia. Failed to improve with supportive care and aggressive abx tx. Family reaffirmed DNR status and transitoned into Hospice care and continued a downhill course with worsening renal output and respiratory insufficiency. She at date and time noted. - Additional Data Confirmation of as documented by pronouncing clinician: no pulse, no respirations, no heart sounds Family: at bedside Attending/PCP notified?: Yes Attending physician: Nicho Rahman MD Was code activated?: No Autopsy requested?: No marine insurance claim examiner notified?: No Organ bank notified?: Yes Advance directives: Yes Hospice patient?: Yes
== END 2018-11-14 07:45 | disposition expired | DRG 193 ==
LOC: ER 09:31 → 2ND 13:02
PROVIDERS: ADMIT Internal Medicine Adolescent Medicine; ATTEND Internal Medicine Adolescent Medicine
CPT/HCPCS: 36415; 71010; 71045; 71250; 80048; 80053; 81001; 82962; 83605; 84484; 85007; 85025; 87040; 87086; 87088; 87186; 92610; 93005; 93306; 94640; 94761; 99284; J1956; J2310; J2405; P9047